=== PATIENT | female | born 2000 | race Two or more races ===

== ENCOUNTER 2020-09-03 21:10 | Emergency (ER) | payer OTHER ==
[~2020-09-03] VITALS: Ht 165.1 cm; Wt 89.0 kg
[2020-09-03] MEDS ORDERED: ALBUTEROL SULFATE 8GM INHALER. INH ONE (22:00)
--- NOTE | 2020-09-03 22:09 | PHYS DOC ---
Adult General Chief Complaint Chief Complaint: DYSPNEA/RESPIRATOY DISTRESS HPI HPI Patient is a 20-year-old female, G1, P0 at 25 weeks who presents with a chief complaint of scratchy throat and mild dry cough for a couple of days. Patient states she does have a history of asthma but it was not that serious and has not had her medication for several years. States that they got some new dogs recently and over the last couple of days has started taking Benadryl for her symptoms. States she has an itchiness in her throat and a mild dry cough. Patient does not think she has been wheezing but states it feels kind of like she is having them symptoms like she did when she was having asthma. Denies any cold/Covid symptoms. Denies any headache, chest pain, shortness of breath, abdominal pain, nausea, vomiting. Denies any vaginal bleeding discharge or gushes of fluid. States she is still feeling the baby move and saw her TYPESETTER PERFORATOR OPERATOR recently and all was well. Review of Systems Review of Systems Review of systems otherwise unremarkable except noted in HPI Allergies Allergies Allergies Coded Allergies Type Severity Reaction Last Updated Verified No Known Drug Allergies 09/03/20 No Physical Exam Physical Exam Constitutional: Well developed, well nourished, no acute distress, non-toxic appearance. [] HENT: Normocephalic, atraumatic, bilateral external ears normal, oropharynx moist, no oral exudates, mild posterior oropharyngeal erythema Eyes: conjunctiva normal, no discharge. [] Neck: Normal range of motion, no tenderness, supple, no stridor. [] Cardiovascular:Heart rate regular rhythm, no murmur [] Lungs & Thorax: Patient moving air well but does have very mild bilateral end expiratory wheeze [] Abdomen: Bowel sounds normal, soft, no tenderness, no masses, no pulsatile masses. [] Skin: Warm, dry, no erythema, no rash. [] Extremities: No tenderness, no cyanosis, no clubbing, ROM intact, no edema. [] Neurologic: Alert and oriented X 3, normal motor function, normal sensory function, no focal deficits noted. [] Psychologic: Affect normal, judgement normal, mood normal. [] EKG EKG [] Radiology/Procedures Radiology/Procedures [] Heart Score C/O Chest Pain: No Risk Factors: Risk Factors: DM, Current or recent (<one month) smoker, HTN, HLP, family history of CAD, obesity. Risk Scores: Risk Factors: DM, Current or recent (<one month) smoker, HTN, HLP, family history of CAD, obesity. Course & Med Decision Making Course & Med Decision Making Patient is a 20-year-old female who presents with a chief complaint of scratchy throat, dry cough and seasonal allergy symptoms Vital signs not concerning. Physical exam noted above. Patient states she already took Benadryl today which does help. States this did start after they got the 2 dogs. Patient given 2 puffs of albuterol in the ED and recommended a short course of albuterol every 6 hours as needed. Also advised to continue antihistamine use, Benadryl being okay since she has it at home. Advised to call her TYPESETTER PERFORATOR OPERATOR first thing in the morning to discuss her seasonal allergies and allergies to pets as well as history of asthma and possible need for albuterol treatment through . Gave strict return precautions to the ED. Patient grateful, verbalized understanding and agreed with the plan of discharge. [] Dragon Disclaimer Dragon Disclaimer This electronic medical record was generated, in whole or in part, using a voice recognition dictation system. Departure Departure: Impression: Primary Impression: Seasonal allergies Additional Impressions: Sore throat Wheeze Disposition: 01 DC HOME SELF CARE/HOMELESS Condition: GOOD Referrals: PCP,NO (PCP) Patient Instructions: Asthma Attacks, Prevention, Asthma, Acute Bronchospasm Additional Instructions: Please read all the attached information. Please use your albuterol inhaler every 6 hours as discussed. Use 2 puffs as shown. You can continue to use your Benadryl as discussed. Please call your TYPESETTER PERFORATOR OPERATOR first thing in the morning to discuss your recent ED visit, and possible need for continued albuterol treatment through your . Please come back to the ED with new or concerning symptoms. Problem Qualifiers REENA KIM MD Sep 03, 2020 22:09
[2020-09-03 22:40] VITALS: BP 120/63
== END 2020-09-03 22:40 | disposition home or self-care (01) ==
LOC: ER 21:10
DX: O99.512 Diseases of the respiratory system complicating pregnancy, second trimester (principal); J30.2 Other seasonal allergic rhinitis; J02.9 Acute pharyngitis, unspecified; R06.2 Wheezing; Z3A.25 25 weeks gestation of pregnancy
CPT/HCPCS: 94640; 99283; 94664